=== PATIENT | male | born 1965 | race African-American/Black ===

== ENCOUNTER 2020-07-02 15:08 | Emergency (ER) | payer OTHER ==
[~2020-07-02] VITALS: Ht 182.9 cm; Wt 113.0 kg
[2020-07-02 17:35] LABS: BASOPHILS % 0.4 % (0.0-2.0); EOSINOPHILS % 0.7 % (0.0-5.0); HEMATOCRIT. 37.8 % (42.0-52.0); HEMOGLOBIN. 12.3 g/dL (14.0-18.0); MEAN CORPUSCULAR HEMOGLOBIN 28.9 pg (28.0-32.0); MEAN CORPUSCULAR VOLUME 88.6 fL (80.0-94.0); MEAN PLATELET VOLUME 10.7 fl (7.4-10.4); MONOCYTES % 4.4 % (2.0-8.0); NEUTROPHILS % 77.5 % (40.0-76.0); PLATELET 194 x1000/uL (130-400); RED BLOOD CELL COUNT 4.26 mill/uL (4.7-6.1)
[2020-07-02 17:42] LABS: CHLORIDE 103 mEq/L (98-107)
[2020-07-02 17:48] LABS: CLARITY URINE CLEAR (CLEAR); COLOR URINE YELLOW (YELLOW); KETONES URINE NEGATIVE (NEGATIVE); LEUKOCYTE ESTERASE URINE NEGATIVE (NEGATIVE); NITRITE URINE NEGATIVE (NEGATIVE); OCCULT BLOOD URINE NEGATIVE (NEGATIVE); PROTEIN URINE NEGATIVE (NEGATIVE); SPECIFIC GRAVITY URINE 1.022 (1.005-1.030)
[2020-07-02] MEDS ORDERED: ASPIRIN 325MG EC TABLET PO ONE (18:15)
[2020-07-02 20:30] VITALS: BP 144/85
== END 2020-07-02 21:02 | disposition short-term general hospital (02) ==
LOC: ER 15:08
DX: R77.8 Other specified abnormalities of plasma proteins (principal); R53.1 Weakness; R06.02 Shortness of breath; R20.0 Anesthesia of skin; I50.9 Heart failure, unspecified; F17.200 Nicotine dependence, unspecified, uncomplicated
CPT/HCPCS: 36415; 71045; 80053; 81003; 83880; 84484; 85025; 93005; 99285